=== PATIENT | male | born 1990 | race Caucasian/White ===

== ENCOUNTER 2017-02-21 06:22 | Observation (INO) | payer OTHER ==
[~2017-02-21] VITALS: Ht 180.3 cm; Wt 84.1 kg
[2017-02-21] VITALS (20 sets, daily range): BP systolic 119–147; BP diastolic 64–84; PULSE 66–130; RESP 10–33; Ht 180.3 cm; Wt 84.1 kg
[~2017-02-21 06:22] MED LIST: CEFAZOLIN 2 GM/50 ML (PMX) 50 ML IVPB ONE
--- NOTE | 2017-02-21 07:21 | HPN ---
Date/Time of Note Date/Time of Note DATE: 02/21/17 TIME: 07:21 Interval H&P Admission Note Pt. seen H&P reviewed: No system changes CASS CORREA MD February 21, 2017 07:21
[2017-02-21] MEDS ORDERED: VAL2 PO (07:22)
[2017-02-21] MEDS ORDERED: CLON-412 PO (07:22)
[2017-02-21] MEDS ORDERED: GABA300C16 PO (07:22)
[2017-02-21] MEDS ORDERED: THROMBIN 5000 UNIT VIAL ONE ×2 (07:50→08:44)
[2017-02-21] MEDS ORDERED: BETAMET NA PHOS/AC(6 MG/ML) 5ML INJ ONE (07:51)
[2017-02-21] MEDS ORDERED: GELATIN SIZE 100 SPONGE ONE (07:51)
[2017-02-21] MEDS ORDERED: BUPIVACAINE 0.25%/EPI (SDV) 30 ML INJ ONE (07:51)
[2017-02-21] MEDS ORDERED: SUCCINYLCHOLINE CHLORIDE 100 MG/5 ML SYG IV ONE (08:17)
[2017-02-21] MEDS ORDERED: LIDOCAINE 2% (SDV) 5 ML INJ ONE (08:17)
[2017-02-21] MEDS ORDERED: FENTAnyl 50 MCG/ML VIAL ONE (08:17)
[2017-02-21] MEDS ORDERED: MIDAZOLAM 1 MG/ML 2 ML INJ ONE (08:17)
[2017-02-21] MEDS ORDERED: PROPOFOL 20 ML ONE (08:17)
[2017-02-21] MEDS ORDERED: FAMOTIDINE 20 MG INJ ONE (08:48)
[2017-02-21] MEDS ORDERED: ONDANSETRON 4 MG INJ ONE (08:48)
[2017-02-21] MEDS ORDERED: METOCLOPRAMIDE 10 MG INJ ONE (08:48)
[2017-02-21] MEDS ORDERED: DEXAMETHASONE 4 MG/ML 1 ML INJ ONE (08:48)
[2017-02-21] MEDS ORDERED: HYDROmorphONE 2 MG/ML SYG ONE (08:49)
[2017-02-21] MEDS ORDERED: POLYMYXIN/BACITRACIN 1L IRRIG IRR ONE (09:25)
[2017-02-21] MEDS ORDERED: BUPIVACAINE 0.25%/EPI (SDV) 30 ML INJ INJ ONE (09:26)
[2017-02-21] MEDS ORDERED: GELATIN SIZE 100 SPONGE TOP ONE (09:27)
[2017-02-21] MEDS ORDERED: HEMOSTATIC MATRIX/ THROMBIN 1 EA SYG ZFS ONE (09:27)
[2017-02-21] MEDS ORDERED: THROMBIN 5000 UNIT VIAL TOP ONE (09:29)
[2017-02-21] MEDS ORDERED: HYDROmorphONE (0.2 MG/ML) 10ML SYG IV PRN ×3 (10:00)
[2017-02-21] MEDS ORDERED: ONDANSETRON 4 MG INJ IV PRN ×2 (10:00→11:00)
[2017-02-21] MEDS ORDERED: DIPHENHYDRAMINE 50 MG INJ IV PRN (10:00)
[2017-02-21] MEDS ORDERED: MEPERIDINE 25 MG INJ IV PRN (10:00)
[2017-02-21] MEDS ORDERED: FENTAnyl 50 MCG/ML VIAL IV PRN ×2 (10:00)
[2017-02-21] MEDS ORDERED: PROCHLORPERAZINE 10 MG INJ IV PRN (10:00)
--- NOTE | 2017-02-21 10:38 | PDOCDIS ---
Discharge Instructions CONDITION Patient Condition: Good HOME CARE INSTRUCTIONS: Diet Instructions: Regular ACTIVITY: Activity Restrictions: Avoid heavy lifting Bathing Restrictions: Shower FOLLOW UP/APPOINTMENTS Appointments Follow-up in 2 weeks with CASS Mcmahon MD February 21, 2017 10:38
--- NOTE | 2017-02-21 10:54 | OPR ---
Date/Time of Note Date/Time of Note DATE: 02/21/17 TIME: 10:53 Operative Report Free Text/Dictation DATE OF OPERATION: 02/21/2017 PREOPERATIVE DIAGNOSES: Left L5-S1 disk herniation with radiculopathy POSTOPERATIVE DIAGNOSES: Left L5-S1 disk herniation with radiculopathy OPERATION PERFORMED: Left L5-S1 microdiscectomy SURGEON: Cass Correa MD FOUR SLIDE MACHINE SETTER: Jalil Herrera MD ANESTHESIA: General endotracheal ESTIMATED BLOOD LOSS: Minimal SURGICAL INDICATION: The patient is a 26 year-old male who presents with a history of left lower extremity pain and weakness. He was found to have a disc herniation which correlated well with his symptoms. The patient had failed conservative treatment. Risks, benefits, and alternatives to microdiscectomy were explained to the patient and they wished to proceed. Risks explained included but were not exclusive of bleeding, infection, cauda equina syndrome, nerve injury, dural tear, iatrogenic instability, recurrent disc herniation, fracture, vascular injury, bowel injury, stroke, heart attack and pulmonary embolism. DESCRIPTION OF TECHNIQUE: The patient was identified in the preoperative area and taken to the operating room. Rapid induction of general endotracheal anesthesia was performed. The patient was given 2 g of cefazolin for prophylaxis. The patient was then placed in the prone position on the Eliud frame on a Michael flat top table with all prominences well padded. The back was prepped and draped in the usual sterile manner. Using a spinal needle and intraoperative fluoroscopy, the appropriate level was clearly identified (L5-S1) . The skin was injected using 0.25% Marcaine with epinephrine. Longitudinal midline incision was then created using a 10 blade. Further dissection through soft tissue was performed using electrocautery down to the spinous processes. The dissection was taken down the left side of the lamina and over the facet joint capsule. A self-retaining retractor was applied. Again, intraoperative fluoroscopy confirmed the appropriate level. The microscope was brought into use for microdissection. A small portion of the caudal aspect of the cephalad lamina was resected using a high-speed bur. A series of Kerrison rongeurs were then used to resect the ligamentum flavum. The dura and traversing nerve root were both directly visualized. These were retracted gently in a medial direction. Immediately, the extruded disc fragment was noted. The pseudo anulus was incised using an 11 blade. Several loose fragments of disk were removed. These were removed back to a stable portion of the disk. The disk space was further pressurized using a using normal saline through a syringe to ensure that no loose fragments remained behind. Palpation with a ball-tip probe did not reveal any further stenosis. The traversing left S1 nerve root was noted to be significantly decompressed. Meticulous attention was paid towards hemostasis using FloSeal as well as Gelfoam and thrombin. Care was taken to remove all FloSeal and Gelfoam prior to wound closure. The fascia was then closed using 0 Vicryl in an interrupted fashion. Subcutaneous tissue was closed using 2-0 Vicryl in an interrupted fashion. The skin was closed using a running 4-0 Monocryl stitch. The wound was dressed using Dermabond and a 4x4 sterile gauze. The patient was returned to the supine position. He was extubated immediately postoperatively and taken to the recovery room in stable condition. COMPLICATIONS: None. Anesthesia: general Estimated Blood Loss: minimal Complications: None Pt Condition Post Procedure: stable Disposition: PACU CASS CORREA MD February 21, 2017 10:54
[2017-02-21] MEDS: FENTAnyl 50 MCG/ML VIAL IV PRN ×2 (10:59→11:34)
[2017-02-21] MEDS ORDERED: NALOXONE (0.4 MG/ML) INJ IV PRN (11:00)
[2017-02-21] MEDS ORDERED: HYDROCODONE/APAP (5/325) TAB PO PRN ×2 (11:00)
[2017-02-21] MEDS ORDERED: NACL 0.9% 3 ML SYG IV SCH (11:00)
[2017-02-21] MEDS ORDERED: PROCHLORPERAZINE 10 MG TAB PO PRN (11:00)
--- NOTE | 2017-02-21 11:09 | RADRPT ---
PROCEDURE: Intraoperative fluoroscopy. CLINICAL INDICATION: Intraoperative fluoroscopy during L5-S1 microdiskectomy. TECHNIQUE: 2 spot intraoperative fluoroscopic images were provided. The images were reviewed on a high-resolution PACS workstation. COMPARISON: None available FINDINGS: Multiple spot intraoperative fluoroscopic views were provided during L5 S O microdiskectomy. The im ages demonstrate initial images with metallic probe at the level of L5-S1. Subsequent imaging demon strates metallic instrumentation at the level of L5-S1. The total fluoroscopy time was 7.6 seconds. IMPRESSION: 1. Multiple spot intraoperative fluoroscopic views during L5-S1 microdiskectomy were provided. 2. Please see operative report of the same day for further information. RPTAT: HGAS .Marcelo Archer MD, Date Time Electronically viewed and signed by .Marcelo Archer MD, on 02/21/2017 11:08 .S/
== END 2017-02-21 14:25 | disposition home or self-care (01) ==
LOC: INTOOBSV 06:22 → REC 06:22 → EDSEX 06:22 → EDSTATUS 08:00
PROVIDERS: ADMIT Orthopaedic Surgery; ATTEND Orthopaedic Surgery
DX: M51.17 Intervertebral disc disorders with radiculopathy, lumbosacral region (principal)
CPT/HCPCS: 63030; 72100; 97162; 99217; J0330; J0702; J1100; J1170; J1200; J2175; J2250; J2405; J2765; J3010; G0378